=== PATIENT | female | born 1960 | race Caucasian/White ===

== ENCOUNTER 2025-02-18 14:35 | Inpatient (IN) | payer MEDICAID ==
[~2025-02-18] VITALS: Ht 167.6 cm; Wt 83.0 kg
[2025-02-18 14:37] VITALS: O2SAT 98
[2025-02-18] MEDS ORDERED: MORPHINE SULFATE 4 MG/ML INJ (FOR IV/IM USE) IV ONE (16:30)
[2025-02-18] MEDS: LORAZEPAM 2MG/ML UD SYRINGE IV SCH (18:26)
[2025-02-18] MEDS: MORPHINE SULFATE 4 MG/ML INJ (FOR IV/IM USE) IV SCH (18:26)
[2025-02-18 18:34] LABS: BASOPHILS % 1.2 % (0.0-2.0); EOSINOPHILS % 4.4 % (0.0-5.0); HEMATOCRIT. 40.7 % (36.0-48.0); HEMOGLOBIN. 13.3 g/dL (12.0-16.0); LYMPHOCYTES % 42.8 % (20.0-50.0); MEAN PLATELET VOLUME 9.4 fl (7.4-10.4); MONOCYTES % 8.5 % (2.0-8.0); NEUTROPHILS % 43.1 % (40.0-76.0); PLATELET 221 x1000/uL (130-400); RED BLOOD CELL COUNT 4.62 mill/uL (4.2-5.4); RED CELL DISTRIBUTION WIDTH 17.8 % (11.6-14.6)
[2025-02-18 18:48] LABS: CREATININE 1.1 mg/dL (0.6-1.0)
[2025-02-18 18:49] LABS: UREA NITROGEN BLOOD 14 mg/dL (9-23)
[2025-02-18 18:51] LABS: ASPARTATE AMINOTRANSFERASE 28 IU/L (<34); BILIRUBIN DIRECT 0.2 mg/dL (<=3.0); BILIRUBIN TOTAL 0.5 mg/dL (0.1-1.0); PROTEIN TOTAL 7.7 g/dL (6.0-8.3)
[2025-02-18 19:28] LABS: TROPONIN I HIGH SENSITIVITY 50 ng/L (3.0-34)
[2025-02-18] MEDS: ASPIRIN 325MG TABLET PO ONE (20:54)
[2025-02-18 21:55] LABS: TROPONIN I HIGH SENSITIVITY 42 ng/L (3.0-34)
[2025-02-19] VITALS (7 sets, daily range): BP systolic 101–163; BP diastolic 73–104; PULSE 65–89; RESP 16–20; TEMP 36.1–36.4736; O2SAT 91–98
[2025-02-19] MEDS ORDERED: NALOXONE HCL 0.4MG/ML VIAL IV PRN (05:45)
[2025-02-19] MEDS: ENOXAPARIN 40MG/0.4ML SYR SUBCUT SCH (09:00)
[2025-02-19] MEDS: METOPROLOL SUCCINATE 50MG ER TABLET PO SCH (09:00)
[2025-02-19] MEDS: ASPIRIN 81MG TABLET PO SCH (09:00)
[2025-02-19] MEDS: HYDROCODONE/ACETAMINOPHEN 5/325MG TABLET PO PRN (10:19)
[2025-02-19] MEDS: DOCUSATE SODIUM 250MG CAPSULE PO SCH (13:38)
[2025-02-19] MEDS: PANTOPRAZOLE 40MG DR TABLET PO SCH (13:39)
[2025-02-19] MEDS: TRAMADOL 50MG TABLET PO PRN (14:02)
[2025-02-19] MEDS: ENOXAPARIN 80MG/0.8ML SYR SUBCUT SCH (15:14)
[2025-02-19] MEDS ORDERED: CARV3.1242 PO (17:10)
[2025-02-19] MEDS ORDERED: MULT-1146 MT (17:10)
[2025-02-19] MEDS ORDERED: DIVA-18 PO (17:10)
[2025-02-19] MEDS ORDERED: ATOR40TA70 MT (17:10)
[2025-02-19] MEDS ORDERED: NITR0.4T49 SL (17:10)
[2025-02-19] MEDS ORDERED: ASPI-1497 PO (17:10)
[2025-02-19] MEDS ORDERED: RISP-28 PO (17:10)
[2025-02-19] MEDS: AMLODIPINE 10MG TABLET PO SCH (18:13)
[2025-02-19] MEDS ORDERED: RISP1TAB93 PO (20:04)
[2025-02-19] MEDS: ATORVASTATIN CALCIUM 40MG TABLET PO SCH (21:18)
[2025-02-19] MEDS: RISPERIDONE 1MG TABLET PO SCH (21:18)
[2025-02-19 22:09] LABS: INR 1.0
[2025-02-20] VITALS: BP 135/66; PULSE 68; RESP 18; TEMP 36.4; TEMP 36.5; O2SAT 94; O2SAT 95
[2025-02-20 04:00] VITALS: BP 118/67; PULSE 62; RESP 18; TEMP 36.4; O2SAT 96
[2025-02-20] MEDS: ENOXAPARIN 80MG/0.8ML SYR SUBCUT SCH (06:00)
[2025-02-20 08:00] VITALS: BP 145/84; PULSE 82; RESP 16; TEMP 36.4; O2SAT 94
[2025-02-20 16:00] VITALS: BP 121/88; PULSE 72; RESP 16; TEMP 36.2; O2SAT 97
[2025-02-20 20:00] VITALS: BP 132/70; PULSE 60; RESP 18; TEMP 36.3; O2SAT 96
[2025-02-21] VITALS: BP 144/88; PULSE 66; RESP 18; TEMP 36.3; O2SAT 98
[2025-02-21 04:00] VITALS: BP 132/74; PULSE 69; RESP 16; TEMP 36.6
[2025-02-21 20:00] VITALS: BP 127/96; PULSE 76; RESP 16; TEMP 36.2; O2SAT 96
[2025-02-22] VITALS: BP 126/78; PULSE 91; RESP 16; TEMP 37; O2SAT 96
[2025-02-22 04:00] VITALS: BP 109/84; PULSE 84; RESP 16; TEMP 36.1; O2SAT 97
[2025-02-22 08:00] VITALS: BP 103/65; PULSE 89; RESP 18; TEMP 36.7; O2SAT 97
[2025-02-22 12:00] VITALS: BP 126/78; PULSE 68; RESP 16; TEMP 36.9; O2SAT 96
[2025-02-22] MEDS: LORAZEPAM 1MG TABLET PO PRN (12:16)
[2025-02-22 16:00] VITALS: BP 117/79; PULSE 73; RESP 16; TEMP 36.4; O2SAT 97
[2025-02-22 20:00] VITALS: BP 132/85; PULSE 82; RESP 18; TEMP 36.3; O2SAT 95
[2025-02-23] VITALS: BP 132/85; PULSE 82; RESP 18; TEMP 36.3; O2SAT 95
[2025-02-23 04:00] VITALS: BP 100/78; PULSE 82; RESP 18; TEMP 36; O2SAT 95
[2025-02-23 08:00] VITALS: BP 124/78; PULSE 86; RESP 20; TEMP 36.5; O2SAT 95
[2025-02-23 11:27] LABS: BASOPHILS % 0.7 % (0.0-2.0); EOSINOPHILS % 0.4 % (0.0-5.0); HEMATOCRIT. 37.8 % (36.0-48.0); HEMOGLOBIN. 12.3 g/dL (12.0-16.0); LYMPHOCYTES % 30.7 % (20.0-50.0); MEAN PLATELET VOLUME 10.3 fl (7.4-10.4); MONOCYTES % 10.0 % (2.0-8.0); NEUTROPHILS % 58.2 % (40.0-76.0); PLATELET 165 x1000/uL (130-400); RED BLOOD CELL COUNT 4.25 mill/uL (4.2-5.4); RED CELL DISTRIBUTION WIDTH 17.0 % (11.6-14.6)
[2025-02-23 11:39] LABS: CREATININE 1.1 mg/dL (0.6-1.0); UREA NITROGEN BLOOD 19.0 mg/dL (9-23)
[2025-02-23 12:00] VITALS: BP 118/75; PULSE 70; RESP 20; TEMP 36.9; O2SAT 99
[2025-02-23 16:00] VITALS: BP 119/79; PULSE 78; RESP 22; TEMP 37; O2SAT 97
[2025-02-23 20:00] VITALS: BP 128/79; PULSE 84; RESP 17; TEMP 36.4; O2SAT 97
[2025-02-23] MEDS: POLYETHYLENE GLYCOL 3350 (17GM) 1 DOSE PACK PO PRN (20:27)
[2025-02-24] VITALS: BP 126/80; PULSE 73; RESP 16; TEMP 36.3; O2SAT 98
[2025-02-24 04:25] VITALS: BP 110/66; PULSE 60; RESP 14; TEMP 37.1; O2SAT 98
[2025-02-24] MEDS: FAMOTIDINE 20MG TABLET PO SCH (09:15)
[2025-02-24 11:27] LABS: BASOPHILS % 1.0 % (0.0-2.0); EOSINOPHILS % 3.9 % (0.0-5.0); HEMATOCRIT. 38.1 % (36.0-48.0); HEMOGLOBIN. 12.5 g/dL (12.0-16.0); LYMPHOCYTES % 28.0 % (20.0-50.0); MEAN PLATELET VOLUME 10.0 fl (7.4-10.4); MONOCYTES % 9.5 % (2.0-8.0); NEUTROPHILS % 57.6 % (40.0-76.0); PLATELET 165 x1000/uL (130-400); RED BLOOD CELL COUNT 4.34 mill/uL (4.2-5.4); RED CELL DISTRIBUTION WIDTH 17.2 % (11.6-14.6)
[2025-02-24 11:45] LABS: CREATININE 1.0 mg/dL (0.6-1.0); UREA NITROGEN BLOOD 19.0 mg/dL (9-23)
[2025-02-24 16:00] VITALS: BP 118/83; PULSE 61; RESP 17; TEMP 36.4; O2SAT 97
[2025-02-24 20:00] VITALS: BP 127/68; PULSE 70; RESP 19; TEMP 36.3; O2SAT 96
[2025-02-24] MEDS: SENNOSIDES/DOCUSATE SOD 8.6/50MG TABLET PO PRN (21:52)
[2025-02-25] VITALS: BP 100/68; PULSE 78; RESP 19; TEMP 36.7; O2SAT 96
[2025-02-25 04:00] VITALS: BP 102/71; PULSE 72; RESP 19; TEMP 36.4; O2SAT 96
[2025-02-25 08:00] VITALS: BP_SYST 103; BP_SYST 110; BP_DIAS 61; BP_DIAS 77; PULSE 75; RESP 14; RESP 16; TEMP 35.9; TEMP 36.1; O2SAT 100; O2SAT 95
[2025-02-25] MEDS: TRAMADOL 50MG TABLET PO PRN (11:23)
[2025-02-25 12:00] VITALS: BP 124/96; PULSE 82; RESP 16; TEMP 36.4; O2SAT 98
[2025-02-25 13:46] LABS: BASOPHILS % 0.8 % (0.0-2.0); EOSINOPHILS % 3.3 % (0.0-5.0); HEMATOCRIT. 38.5 % (36.0-48.0); HEMOGLOBIN. 12.5 g/dL (12.0-16.0); LYMPHOCYTES % 32.2 % (20.0-50.0); MEAN PLATELET VOLUME 10.0 fl (7.4-10.4); MONOCYTES % 9.5 % (2.0-8.0); NEUTROPHILS % 54.2 % (40.0-76.0); PLATELET 178 x1000/uL (130-400); RED BLOOD CELL COUNT 4.38 mill/uL (4.2-5.4); RED CELL DISTRIBUTION WIDTH 17.2 % (11.6-14.6)
[2025-02-25 13:58] LABS: CREATININE 0.9 mg/dL (0.6-1.0); UREA NITROGEN BLOOD 16 mg/dL (9-23)
[2025-02-25 16:00] VITALS: BP 119/91; PULSE 73; RESP 18; TEMP 36.3; O2SAT 97
[2025-02-25 20:00] VITALS: BP 117/79; PULSE 67; RESP 17; TEMP 36.1
[2025-02-26] VITALS: BP 100/65; PULSE 60; RESP 60; TEMP 36; O2SAT 93
[2025-02-26 04:00] VITALS: BP 124/76; PULSE 63; RESP 16; TEMP 36.2; O2SAT 97
[2025-02-26 08:10] VITALS: BP 98/48; PULSE 58; RESP 16; TEMP 36.1; O2SAT 98
[2025-02-26] MEDS: LOSARTAN 25 MG TABLET PO SCH (08:11)
[2025-02-26 11:50] LABS: BASOPHILS % 0.9 % (0.0-2.0); EOSINOPHILS % 4.1 % (0.0-5.0); HEMATOCRIT. 38.7 % (36.0-48.0); HEMOGLOBIN. 12.8 g/dL (12.0-16.0); LYMPHOCYTES % 38.4 % (20.0-50.0); MEAN PLATELET VOLUME 10.5 fl (7.4-10.4); MONOCYTES % 9.5 % (2.0-8.0); NEUTROPHILS % 47.1 % (40.0-76.0); PLATELET 174 x1000/uL (130-400); RED BLOOD CELL COUNT 4.42 mill/uL (4.2-5.4); RED CELL DISTRIBUTION WIDTH 17.4 % (11.6-14.6)
[2025-02-26 12:06] LABS: CREATININE 0.9 mg/dL (0.6-1.0); UREA NITROGEN BLOOD 13 mg/dL (9-23)
[2025-02-26] MEDS: NITROGLYCERIN SPRAY/4.9GM CAN TL ONE (14:10)
[2025-02-26] MEDS ORDERED: IOHEXOL-350 100 ML BOTTLE ONE (14:21)
[2025-02-26 15:17] VITALS: BP 124/71; PULSE 60; RESP 16; TEMP 36.7; O2SAT 98
[2025-02-26 20:00] VITALS: BP 109/74; PULSE 78; RESP 16; TEMP 36.4; O2SAT 99
[2025-02-27] VITALS: BP 107/60; PULSE 76; RESP 18; TEMP 36.6; O2SAT 98
[2025-02-27 04:00] VITALS: BP 90/60; PULSE 55; RESP 16; TEMP 36.5; O2SAT 95
[2025-02-27 08:00] VITALS: BP 132/86; PULSE 66; RESP 18; TEMP 36.3; O2SAT 97
[2025-02-27 12:00] VITALS: BP 129/80; PULSE 68; RESP 19; TEMP 36.5; O2SAT 97
[2025-02-27 16:00] VITALS: BP 88/58; PULSE 67; RESP 18; TEMP 36.7; O2SAT 98
[2025-02-27 20:00] VITALS: BP 110/74; PULSE 61; RESP 20; TEMP 36.5; O2SAT 95
[2025-02-27] MEDS: LORAZEPAM 1MG TABLET PO PRN (20:16)
[2025-02-27] MEDS: RISPERIDONE 0.5MG TABLET PO SCH (20:18)
[2025-02-28] VITALS: BP 80/52; PULSE 64; RESP 20; TEMP 36; O2SAT 96
[2025-02-28 04:00] VITALS: BP 100/65; PULSE 60; RESP 20; TEMP 36.7; O2SAT 98
[2025-02-28 08:00] VITALS: BP 127/89; PULSE 69; RESP 18; TEMP 36.4; O2SAT 96
[2025-02-28 12:00] VITALS: BP 107/79; PULSE 76; RESP 18; TEMP 35.7; O2SAT 97
[2025-02-28 16:00] VITALS: BP 116/77; PULSE 74; RESP 17; TEMP 36.3; O2SAT 98
[2025-02-28 20:00] VITALS: BP 109/78; PULSE 86; RESP 16; TEMP 36.6; O2SAT 95
[2025-02-28] MEDS ORDERED: RISPERIDONE 0.5MG TABLET PO SCH (21:00)
[2025-03-01] VITALS: BP 95/57; PULSE 83; RESP 16; TEMP 36.6; O2SAT 95
[2025-03-01 04:00] VITALS: BP 81/53; PULSE 60; RESP 17; TEMP 36.1; O2SAT 97
[2025-03-01 08:00] VITALS: BP 94/63; PULSE 60; RESP 17; TEMP 36.4; O2SAT 97
[2025-03-01] MEDS: SODIUM CHLORIDE 0.9% (SEPSIS BOLUS) IV ONE (09:42)
[2025-03-01] MEDS: MIDODRINE HCL 5MG TABLET PO PRN (09:42)
[2025-03-01 12:00] VITALS: BP 108/56; PULSE 60; RESP 18; TEMP 36.4; O2SAT 100
[2025-03-01 12:40] LABS: CLARITY URINE CLEAR (CLEAR); COLOR URINE DARK YELLOW (YELLOW); GLUCOSE URINE NEGATIVE (NEGATIVE); KETONES URINE TRACE (NEGATIVE); LEUKOCYTE ESTERASE URINE NEGATIVE (NEGATIVE); NITRITE URINE NEGATIVE (NEGATIVE); OCCULT BLOOD URINE NEGATIVE (NEGATIVE); PH URINE 5.5 (4.5-8.0); PROTEIN URINE NEGATIVE (NEGATIVE); SPECIFIC GRAVITY URINE 1.029 (1.005-1.030); UROBILINOGEN URINE 0.2 E.U./dL (0.2-1.0)
[2025-03-01 16:00] VITALS: BP 125/75; PULSE 60; RESP 17; TEMP 36.4; O2SAT 98
[2025-03-01 18:41] LABS: BASOPHILS % 0.8 % (0.0-2.0); CREATININE 0.9 mg/dL (0.6-1.0); EOSINOPHILS % 2.1 % (0.0-5.0); HEMATOCRIT. 35.9 % (36.0-48.0); HEMOGLOBIN. 11.7 g/dL (12.0-16.0); LYMPHOCYTES % 36.2 % (20.0-50.0); MEAN PLATELET VOLUME 10.9 fl (7.4-10.4); MONOCYTES % 9.4 % (2.0-8.0); NEUTROPHILS % 51.5 % (40.0-76.0); PLATELET 204 x1000/uL (130-400); RED BLOOD CELL COUNT 4.05 mill/uL (4.2-5.4); RED CELL DISTRIBUTION WIDTH 16.8 % (11.6-14.6)
[2025-03-01 18:42] LABS: UREA NITROGEN BLOOD 12 mg/dL (9-23)
[2025-03-01 18:43] LABS: ASPARTATE AMINOTRANSFERASE 24 IU/L (<34)
[2025-03-01 18:44] LABS: BILIRUBIN TOTAL 0.4 mg/dL (0.1-1.0); PROTEIN TOTAL 6.5 g/dL (6.0-8.3)
[2025-03-01 20:00] VITALS: BP 101/57; PULSE 84; RESP 19; TEMP 36.4; O2SAT 96
[2025-03-02] VITALS: BP 92/57; PULSE 73; RESP 17; TEMP 36.2; O2SAT 97
[2025-03-02 04:00] VITALS: BP 120/81; PULSE 78; RESP 18; TEMP 36.3; O2SAT 98
[2025-03-02 08:00] VITALS: BP 124/97; PULSE 74; RESP 19; TEMP 36.2; O2SAT 98
[2025-03-02 12:00] VITALS: BP 120/75; PULSE 82; RESP 18; TEMP 36.5; O2SAT 95
[2025-03-02] MEDS ORDERED: BISACODYL 10MG SUPP PR PRN (12:15)
[2025-03-02] MEDS: ACETAMINOPHEN 325MG TABLET PO PRN (13:31)
[2025-03-02 16:00] VITALS: BP 124/83; PULSE 93; RESP 20; TEMP 36.4; O2SAT 96
[2025-03-02 20:00] VITALS: BP 129/78; PULSE 93; RESP 16; TEMP 36.6; O2SAT 98
[2025-03-02 21:59] LABS: BASOPHILS % 1.1 % (0.0-2.0); EOSINOPHILS % 3.8 % (0.0-5.0); HEMATOCRIT. 34.6 % (36.0-48.0); HEMOGLOBIN. 11.3 g/dL (12.0-16.0); LYMPHOCYTES % 42.6 % (20.0-50.0); MEAN PLATELET VOLUME 10.2 fl (7.4-10.4); MONOCYTES % 10.9 % (2.0-8.0); NEUTROPHILS % 41.6 % (40.0-76.0); PLATELET 203 x1000/uL (130-400); RED BLOOD CELL COUNT 3.90 mill/uL (4.2-5.4); RED CELL DISTRIBUTION WIDTH 16.5 % (11.6-14.6)
[2025-03-02 22:18] LABS: CREATININE 0.9 mg/dL (0.6-1.0); UREA NITROGEN BLOOD 13 mg/dL (9-23)
[2025-03-03] VITALS: BP 139/84; PULSE 88; RESP 18; TEMP 36.5; O2SAT 98
[2025-03-03 04:00] VITALS: BP 116/90; PULSE 80; RESP 16; TEMP 37.1; O2SAT 100
[2025-03-03 06:54] LABS: BASOPHILS % 0.9 % (0.0-2.0); EOSINOPHILS % 5.4 % (0.0-5.0); HEMATOCRIT. 34.9 % (36.0-48.0); HEMOGLOBIN. 11.5 g/dL (12.0-16.0); LYMPHOCYTES % 46.4 % (20.0-50.0); MEAN PLATELET VOLUME 10.8 fl (7.4-10.4); MONOCYTES % 9.5 % (2.0-8.0); NEUTROPHILS % 37.8 % (40.0-76.0); PLATELET 198 x1000/uL (130-400); RED BLOOD CELL COUNT 3.99 mill/uL (4.2-5.4); RED CELL DISTRIBUTION WIDTH 16.7 % (11.6-14.6)
[2025-03-03 07:19] LABS: CREATININE 0.9 mg/dL (0.6-1.0); UREA NITROGEN BLOOD 11 mg/dL (9-23)
[2025-03-03 08:00] VITALS: BP 120/67; PULSE 56; RESP 20; TEMP 36.2; O2SAT 100
[2025-03-03 12:00] VITALS: BP 100/71; PULSE 98; RESP 16; TEMP 36.7; O2SAT 96
[2025-03-03 16:00] VITALS: BP 110/85; PULSE 105; RESP 18; TEMP 36.4; O2SAT 97
[2025-03-03 20:00] VITALS: BP 134/84; PULSE 106; RESP 18; TEMP 36.9; O2SAT 98
[2025-03-04] VITALS: BP 136/97; PULSE 90; RESP 16; TEMP 36.6; O2SAT 97
[2025-03-04 04:00] VITALS: BP 130/88; PULSE 95; RESP 18; TEMP 36.7; O2SAT 98
[2025-03-04 08:00] VITALS: BP 112/80; PULSE 101; RESP 18; TEMP 36.5; O2SAT 97
[2025-03-04 12:00] VITALS: BP 110/76; PULSE 102; RESP 19; TEMP 36.6; O2SAT 97
[2025-03-04 14:20] LABS: BASOPHILS % 1.0 % (0.0-2.0); EOSINOPHILS % 1.5 % (0.0-5.0); HEMATOCRIT. 33.0 % (36.0-48.0); HEMOGLOBIN. 10.9 g/dL (12.0-16.0); LYMPHOCYTES % 32.4 % (20.0-50.0); MEAN PLATELET VOLUME 10.8 fl (7.4-10.4); MONOCYTES % 9.8 % (2.0-8.0); NEUTROPHILS % 55.3 % (40.0-76.0); PLATELET 213 x1000/uL (130-400); RED BLOOD CELL COUNT 3.78 mill/uL (4.2-5.4); RED CELL DISTRIBUTION WIDTH 16.5 % (11.6-14.6)
[2025-03-04 14:36] LABS: CREATININE 1.0 mg/dL (0.6-1.0)
[2025-03-04 14:37] LABS: UREA NITROGEN BLOOD 11.0 mg/dL (9-23)
[2025-03-04 16:00] VITALS: BP 112/75; PULSE 100; RESP 19; TEMP 36.5; O2SAT 97
[2025-03-04 20:00] VITALS: BP 119/80; PULSE 114; RESP 19; TEMP 36.6; O2SAT 96
[2025-03-05 04:00] VITALS: BP 105/69; PULSE 69; RESP 19; TEMP 36.3; O2SAT 98
[2025-03-05 08:00] VITALS: BP 125/85; PULSE 85; RESP 17; TEMP 36.3; O2SAT 98
[2025-03-05 12:00] VITALS: BP 128/74; PULSE 57; RESP 17; TEMP 36.4; O2SAT 98
[2025-03-05 16:00] VITALS: BP 124/85; PULSE 97; RESP 17; TEMP 36.2; O2SAT 100
[2025-03-05 20:00] VITALS: BP 127/88; PULSE 98; RESP 17; TEMP 36.4; O2SAT 99
[2025-03-06 02:00] VITALS: BP 127/93; PULSE 94; RESP 17; TEMP 36.6; O2SAT 98
[2025-03-06 04:00] VITALS: BP 121/84; PULSE 78; RESP 18; TEMP 36.7; O2SAT 96
[2025-03-06 08:00] VITALS: BP 136/96; PULSE 80; RESP 16; TEMP 36.6; O2SAT 97
[2025-03-06 12:00] VITALS: BP 121/81; PULSE 81; RESP 20; TEMP 36.3; O2SAT 98
[2025-03-06] MEDS: LORAZEPAM 0.5MG TABLET PO PRN (12:45)
[2025-03-06 16:00] VITALS: BP 130/69; PULSE 100; RESP 18; TEMP 36.2; O2SAT 99
[2025-03-06 20:00] VITALS: BP 113/71; PULSE 83; RESP 18; TEMP 36.5; O2SAT 97
[2025-03-06] MEDS: RISPERIDONE 1MG TABLET PO SCH (20:47)
[2025-03-06] MEDS: MELATONIN 3MG TABLET PO SCH (20:47)
[2025-03-07] VITALS: BP 112/72; PULSE 80; RESP 18; TEMP 36.3; O2SAT 96
[2025-03-07 04:00] VITALS: BP 97/64; PULSE 67; RESP 19; TEMP 36; O2SAT 97
[2025-03-07 08:00] VITALS: BP 122/76; PULSE 79; RESP 19; TEMP 36.5; O2SAT 98
[2025-03-07 12:00] VITALS: BP 113/81; PULSE 58; RESP 20; TEMP 36.3; O2SAT 100
[2025-03-07 20:00] VITALS: BP 136/96; PULSE 89; RESP 18; TEMP 36.7; O2SAT 97
[2025-03-07] MEDS: DIVALPROEX SODIUM 250MG DR TABLET PO SCH (21:13)
[2025-03-08] VITALS: BP 112/65; PULSE 75; RESP 18; TEMP 36.3; O2SAT 95
[2025-03-08 04:00] VITALS: BP 117/75; PULSE 67; RESP 19; TEMP 36.3; O2SAT 99
[2025-03-08 08:00] VITALS: BP 137/59; PULSE 62; RESP 18; TEMP 36.3; O2SAT 97
[2025-03-08 12:00] VITALS: BP 124/78; PULSE 75; RESP 20; TEMP 36.6; O2SAT 98
[2025-03-08 16:00] VITALS: BP 102/70; PULSE 104; RESP 20; TEMP 36.4; O2SAT 98
[2025-03-08 20:00] VITALS: BP 121/77; PULSE 96; RESP 22; TEMP 36.3; O2SAT 98
[2025-03-09] VITALS: BP 114/78; PULSE 76; RESP 17; TEMP 36.3; O2SAT 98
[2025-03-09 04:00] VITALS: BP 130/68; PULSE 80; RESP 18; TEMP 36.4; O2SAT 99
[2025-03-09 08:00] VITALS: BP 101/79; PULSE 65; RESP 18; TEMP 36.7; O2SAT 99
[2025-03-09 12:00] VITALS: BP 107/79; PULSE 78; RESP 18; TEMP 36.7; O2SAT 99
[2025-03-09 16:00] VITALS: BP 114/58; PULSE 80; RESP 18; TEMP 36.1; O2SAT 99
[2025-03-09 20:00] VITALS: BP 117/88; PULSE 103; RESP 19; TEMP 36.6; O2SAT 97
[2025-03-09] MEDS: RISPERIDONE 1MG TABLET PO SCH (20:23)
[2025-03-10] VITALS: BP 102/55; PULSE 90; RESP 20; TEMP 36.6; O2SAT 98
[2025-03-10 04:00] VITALS: BP 108/60; PULSE 88; RESP 19; TEMP 37.1; O2SAT 99
[2025-03-10 08:00] VITALS: BP 122/89; PULSE 72; RESP 20; TEMP 36.9; O2SAT 100
[2025-03-10 12:00] VITALS: BP 131/72; PULSE 90; RESP 20; TEMP 36.5; O2SAT 99
[2025-03-10 16:00] VITALS: BP 141/96; PULSE 100; RESP 18; TEMP 36.6; O2SAT 96
[2025-03-10 17:16] LABS: CREATININE 0.9 mg/dL (0.6-1.0); UREA NITROGEN BLOOD 8 mg/dL (9-23)
[2025-03-10 20:00] VITALS: BP 131/91; PULSE 99; RESP 20; TEMP 36.6; O2SAT 100
[2025-03-11] VITALS: BP 110/63; PULSE 87; RESP 17; TEMP 36.7; O2SAT 98
[2025-03-11 04:00] VITALS: BP 104/56; PULSE 83; RESP 16; TEMP 36.8; O2SAT 99
[2025-03-11 08:00] VITALS: BP 98/58; PULSE 98; RESP 19; TEMP 36.7; O2SAT 98
[2025-03-11 12:00] VITALS: BP 117/84; PULSE 97; RESP 19; TEMP 36.5; O2SAT 97
[2025-03-11 16:00] VITALS: BP 106/80; PULSE 97; RESP 20; TEMP 36.9; O2SAT 97
[2025-03-12 00:35] VITALS: BP 137/91; PULSE 73; RESP 18; TEMP 36.6; O2SAT 97
[2025-03-12 04:55] VITALS: BP 112/74; PULSE 94; RESP 17; TEMP 36.6; O2SAT 97
[2025-03-12 08:00] VITALS: BP 134/69; PULSE 53; RESP 16; TEMP 36.2; O2SAT 99
[2025-03-12 12:00] VITALS: BP 118/81; PULSE 83; RESP 18; TEMP 36.3; O2SAT 98
[2025-03-12 16:00] VITALS: BP 116/71; PULSE 92; RESP 20; TEMP 36.7; O2SAT 96
[2025-03-12 20:00] VITALS: BP 125/86; PULSE 96; RESP 17; TEMP 36.7; O2SAT 95
[2025-03-12] MEDS: GABAPENTIN 300MG CAPSULE PO PRN (20:20)
[2025-03-13 08:00] VITALS: BP 115/55; PULSE 73; RESP 16; TEMP 36.6; O2SAT 95
[2025-03-13 12:00] VITALS: BP 116/73; PULSE 68; RESP 18; TEMP 36.2; O2SAT 97
[2025-03-13 16:00] VITALS: BP 125/52; PULSE 84; RESP 20; TEMP 36.7; O2SAT 97
[2025-03-13 20:00] VITALS: BP 123/80; PULSE 97; RESP 15; TEMP 36.9; O2SAT 98
[2025-03-14] VITALS: BP 107/74; PULSE 105; RESP 16; TEMP 36.7; O2SAT 98
[2025-03-14 04:00] VITALS: BP 104/76; PULSE 97; RESP 18; TEMP 36.7; O2SAT 98
[2025-03-14 08:00] VITALS: BP 111/68; PULSE 62; RESP 17; TEMP 36.7; O2SAT 97
[2025-03-14 12:00] VITALS: BP 126/83; PULSE 70; RESP 17; TEMP 35.6; O2SAT 100
[2025-03-14 16:00] VITALS: BP 121/89; PULSE 71; RESP 17; TEMP 36.8; O2SAT 99
[2025-03-14 20:00] VITALS: BP 113/65; PULSE 82; RESP 19; TEMP 36.7; O2SAT 96
[2025-03-15] VITALS: BP 105/78; PULSE 81; RESP 18; TEMP 36.4; O2SAT 99
[2025-03-15 04:00] VITALS: BP 120/87; PULSE 75; RESP 19; TEMP 36.3; O2SAT 97
[2025-03-15 08:00] VITALS: BP 94/70; PULSE 60; RESP 18; TEMP 36.2; O2SAT 95
[2025-03-15] MEDS: DIPHENHYDRAMINE 50MG CAPSULE PO PRN (09:21)
[2025-03-15 12:00] VITALS: BP 128/88; PULSE 83; RESP 19; TEMP 35.8; O2SAT 95
[2025-03-15 20:00] VITALS: BP 126/77; PULSE 84; RESP 18; TEMP 36.9; O2SAT 97
[2025-03-16] VITALS: RESP 18
[2025-03-16 04:00] VITALS: RESP 18
[2025-03-16 08:00] VITALS: BP 118/67; PULSE 62; RESP 18; TEMP 36.4; O2SAT 97
[2025-03-16 12:00] VITALS: BP 122/75; PULSE 72; RESP 18; TEMP 36.7; O2SAT 97
[2025-03-16 16:00] VITALS: BP 106/78; PULSE 82; RESP 18; TEMP 36.7; O2SAT 97
[2025-03-16 20:00] VITALS: BP 136/63; PULSE 89; RESP 18; TEMP 36.7; O2SAT 98
[2025-03-17] VITALS: RESP 18
[2025-03-17 04:00] VITALS: BP 111/78; RESP 18; TEMP 36.5; O2SAT 99
[2025-03-17 08:00] VITALS: BP 134/78; PULSE 70; RESP 18; TEMP 36.4; O2SAT 98
[2025-03-17 12:00] VITALS: BP 105/76; PULSE 82; RESP 17; TEMP 36.3; O2SAT 97
[2025-03-17 16:00] VITALS: BP 119/62; PULSE 91; RESP 20; TEMP 36.5; O2SAT 99
[2025-03-17 20:00] VITALS: BP 103/59; PULSE 75; RESP 19; TEMP 36.2; O2SAT 94
[2025-03-18] VITALS: BP 107/72; PULSE 86; RESP 19; TEMP 36.3; O2SAT 96
[2025-03-18 04:00] VITALS: BP 108/76; PULSE 62; RESP 18; TEMP 36.2; O2SAT 97
[2025-03-18 08:00] VITALS: BP 127/82; PULSE 89; RESP 18; TEMP 37.2; O2SAT 98
[2025-03-18 12:00] VITALS: BP 118/75; PULSE 88; RESP 18; TEMP 36.5; O2SAT 96
[2025-03-18 16:00] VITALS: BP 112/70; PULSE 94; RESP 17; TEMP 36.8; O2SAT 96
[2025-03-18 20:00] VITALS: BP 127/83; PULSE 98; RESP 18; TEMP 36.4; O2SAT 97
[2025-03-19] VITALS: BP 142/66; PULSE 86; RESP 20; TEMP 36.5; O2SAT 97
[2025-03-19 04:00] VITALS: BP 136/62; PULSE 82; RESP 18; TEMP 36.4; O2SAT 98
[2025-03-19 08:00] VITALS: BP 101/83; PULSE 81; RESP 17; TEMP 36.5; O2SAT 96
[2025-03-19 12:00] VITALS: BP 103/84; PULSE 80; RESP 17; TEMP 36.2; O2SAT 100
[2025-03-19 16:00] VITALS: BP 111/79; PULSE 100; RESP 18; TEMP 36.9; O2SAT 100
[2025-03-19 20:00] VITALS: BP 140/99; PULSE 91; RESP 18; TEMP 36.6; O2SAT 98
[2025-03-20] VITALS: BP 137/84; PULSE 71; RESP 18; TEMP 36.7; O2SAT 96
[2025-03-20 04:00] VITALS: BP 139/86; PULSE 74; RESP 16; TEMP 36.3; O2SAT 100
[2025-03-20 08:00] VITALS: BP 142/115; PULSE 73; RESP 18; TEMP 36.3; O2SAT 98
[2025-03-20 12:00] VITALS: BP 135/94; PULSE 64; RESP 19; TEMP 36.2; O2SAT 97
[2025-03-20 20:00] VITALS: BP 130/99; PULSE 77; RESP 18; TEMP 36.7; O2SAT 100
[2025-03-21 00:30] VITALS: BP 123/75; PULSE 70; RESP 17; TEMP 36.5; O2SAT 100
[2025-03-21 04:28] VITALS: BP 145/64; PULSE 57; RESP 18; TEMP 36.3; O2SAT 95
[2025-03-21 08:00] VITALS: BP 139/70; PULSE 60; RESP 16; TEMP 36.2; O2SAT 100
[2025-03-21 12:00] VITALS: BP 121/85; PULSE 81; RESP 16; TEMP 36.3; O2SAT 97
[2025-03-21 16:00] VITALS: BP 135/73; PULSE 62; RESP 16; TEMP 36.2; O2SAT 99
[2025-03-21 20:00] VITALS: BP 138/92; PULSE 96; RESP 19; TEMP 36.4; O2SAT 96
[2025-03-22] VITALS: BP 123/62; PULSE 72; RESP 19; TEMP 36.4; O2SAT 98
[2025-03-22 04:00] VITALS: BP 107/67; PULSE 66; RESP 19; TEMP 36.6; O2SAT 98
[2025-03-22 08:00] VITALS: BP 132/81; PULSE 75; RESP 18; TEMP 36.2; O2SAT 97
[2025-03-22 12:00] VITALS: BP 118/77; PULSE 82; RESP 18; TEMP 35.3; O2SAT 96
[2025-03-22 16:00] VITALS: BP 133/88; PULSE 98; RESP 20; TEMP 36.4; O2SAT 96
[2025-03-22 20:00] VITALS: RESP 18; TEMP 36.2
[2025-03-23] VITALS: BP 118/82; PULSE 106; RESP 18; TEMP 36.7; O2SAT 94
[2025-03-23 04:00] VITALS: BP 142/86; PULSE 62; RESP 18; TEMP 36.5; O2SAT 96
[2025-03-23 08:00] VITALS: BP 120/78; PULSE 70; RESP 19; TEMP 36.5; O2SAT 96
[2025-03-23 12:00] VITALS: BP 119/76; PULSE 83; RESP 19; TEMP 36.4; O2SAT 98
[2025-03-23 16:00] VITALS: BP 134/81; PULSE 84; RESP 19; TEMP 36.6; O2SAT 95
[2025-03-23 20:00] VITALS: BP 136/64; PULSE 95; RESP 17; TEMP 36.3; O2SAT 95
[2025-03-24] VITALS: BP 120/64; PULSE 74; RESP 18; TEMP 36.2; O2SAT 96
[2025-03-24 04:00] VITALS: BP 95/60; PULSE 67; RESP 19; TEMP 36.3; O2SAT 97
[2025-03-24 08:00] VITALS: BP 113/73; PULSE 78; RESP 19; TEMP 36.3; O2SAT 100
[2025-03-24 12:00] VITALS: BP 106/73; PULSE 85; RESP 18; TEMP 35.8; O2SAT 98
[2025-03-24 16:00] VITALS: BP 115/82; PULSE 95; RESP 18; TEMP 36.4; O2SAT 98
[2025-03-24] MEDS ORDERED: LORAZEPAM 2MG/ML UD SYRINGE IV PRN (17:15)
[2025-03-24] MEDS: LORAZEPAM 1MG TABLET PO PRN (18:50)
[2025-03-24 20:00] VITALS: BP 111/70; PULSE 86; RESP 19; TEMP 36.4; O2SAT 98
[2025-03-25] VITALS: BP 101/62; PULSE 80; RESP 19; TEMP 36.3; O2SAT 97
[2025-03-25 04:00] VITALS: BP 103/79; PULSE 72; RESP 19; TEMP 36.3; O2SAT 98
[2025-03-25 08:00] VITALS: BP 111/71; PULSE 71; RESP 18; TEMP 36.3; O2SAT 100
[2025-03-25 12:00] VITALS: BP 104/68; PULSE 64; RESP 16; TEMP 36.2; O2SAT 96
[2025-03-25 16:00] VITALS: BP 97/69; PULSE 81; RESP 15; TEMP 36.7; O2SAT 96
[2025-03-25 20:00] VITALS: BP 111/68; PULSE 82; RESP 19; TEMP 36.4; O2SAT 95
[2025-03-26] VITALS: BP 103/60; PULSE 102; RESP 20; TEMP 36.4; O2SAT 96
[2025-03-26 04:00] VITALS: BP 97/63; PULSE 70; RESP 18; TEMP 36.4; O2SAT 97
[2025-03-26 08:00] VITALS: BP 95/59; PULSE 70; RESP 18; TEMP 36.6; O2SAT 98
[2025-03-26 12:00] VITALS: BP 113/63; PULSE 63; RESP 18; TEMP 36.3; O2SAT 94
[2025-03-26 16:00] VITALS: BP 112/82; PULSE 80; RESP 15; TEMP 36.4; O2SAT 98
[2025-03-26 20:00] VITALS: BP 103/77; PULSE 70; RESP 16; TEMP 36.7; O2SAT 95
[2025-03-27] VITALS: BP 97/62; PULSE 81; RESP 18; TEMP 36.2; O2SAT 99
[2025-03-27 04:00] VITALS: BP 106/72; PULSE 80; RESP 17; TEMP 36.3; O2SAT 98
[2025-03-27 08:00] VITALS: BP 121/71; PULSE 89; RESP 16; TEMP 36.4; O2SAT 97
[2025-03-27] MEDS: GABAPENTIN 300MG CAPSULE PO SCH (09:11)
[2025-03-27 12:00] VITALS: BP 118/92; PULSE 102; RESP 15; TEMP 36.6; O2SAT 98
[2025-03-27 16:00] VITALS: BP 97/75; PULSE 85; RESP 16; TEMP 36.5; O2SAT 95
[2025-03-27] MEDS: DIPHENHYDRAMINE 25MG CAPSULE PO PRN (17:04)
[2025-03-27 20:00] VITALS: BP 115/77; PULSE 85; RESP 24; TEMP 36.8; O2SAT 98
[2025-03-27] MEDS: ENOXAPARIN 30MG/0.3ML SYR SUBCUT SCH (20:31)
[2025-03-28] VITALS: BP 118/74; PULSE 88; RESP 18; TEMP 36.6; O2SAT 97
[2025-03-28 04:00] VITALS: BP 114/69; PULSE 81; RESP 19; TEMP 36.7; O2SAT 97
[2025-03-28 08:00] VITALS: BP 112/73; PULSE 66; RESP 19; TEMP 36.4; O2SAT 96
[2025-03-28 12:00] VITALS: BP 115/85; PULSE 79; RESP 18; TEMP 35.6; O2SAT 97
[2025-03-28 16:00] VITALS: BP 102/52; PULSE 96; RESP 19; TEMP 36.6; O2SAT 95
[2025-03-29 08:00] VITALS: BP 110/64; PULSE 83; RESP 17; TEMP 36.4; O2SAT 94
[2025-03-29 12:00] VITALS: BP 112/67; PULSE 83; RESP 17; TEMP 36.4; O2SAT 94
[2025-03-29 16:00] VITALS: BP 120/63; PULSE 88; RESP 17; TEMP 36.4; O2SAT 98
[2025-03-29 20:00] VITALS: BP 119/68; PULSE 72; RESP 18; TEMP 36.1; O2SAT 100
[2025-03-30] VITALS: BP 105/70; PULSE 79; RESP 18; TEMP 36.2; O2SAT 100
[2025-03-30] MEDS ORDERED: NALOXONE HCL 0.4MG/ML VIAL IV PRN (00:45)
[2025-03-30] MEDS: DOCUSATE SODIUM 250MG CAPSULE PO SCH (00:56)
[2025-03-30] MEDS: HYDROCODONE/ACETAMINOPHEN 5/325MG TABLET PO PRN (00:57)
[2025-03-30 04:00] VITALS: BP 110/72; PULSE 81; RESP 18; TEMP 35.9; O2SAT 95
[2025-03-30 08:00] VITALS: BP 114/78; PULSE 73; RESP 17; TEMP 36.5; O2SAT 95
[2025-03-30 16:00] VITALS: BP 117/70; PULSE 70; RESP 16; TEMP 36.3; O2SAT 96
[2025-03-30 20:00] VITALS: BP 126/81; PULSE 86; RESP 19; TEMP 37.1; O2SAT 96
[2025-03-31] VITALS: BP 103/74; PULSE 80; RESP 19; TEMP 36.9; O2SAT 98
[2025-03-31 04:00] VITALS: BP 113/74; PULSE 74; RESP 20; TEMP 36.1; O2SAT 98
[2025-03-31 12:00] VITALS: BP 99/72; PULSE 79; RESP 18; TEMP 36.5; O2SAT 96
[2025-03-31 16:00] VITALS: BP 110/58; PULSE 65; RESP 19; TEMP 36.5; O2SAT 100
[2025-03-31 20:00] VITALS: BP 133/96; PULSE 84; RESP 18; TEMP 36.3; O2SAT 99
[2025-04-01] VITALS: BP 128/82; PULSE 74; RESP 18; TEMP 36.3; O2SAT 99
[2025-04-01 04:00] VITALS: BP 122/86; PULSE 68; RESP 18; TEMP 36.1; O2SAT 99
[2025-04-01 16:00] VITALS: BP 99/71; PULSE 94; RESP 19; TEMP 36.7; O2SAT 97
[2025-04-01 20:00] VITALS: BP 114/64; PULSE 89; RESP 18; TEMP 36.3; O2SAT 98
[2025-04-02] VITALS: BP 104/58; PULSE 77; RESP 18; TEMP 36.6; O2SAT 98
[2025-04-02 04:00] VITALS: BP 103/53; PULSE 79; RESP 18; TEMP 36.5; O2SAT 99
[2025-04-02 08:00] VITALS: BP 124/55; PULSE 80; RESP 17; TEMP 35.5; O2SAT 98
[2025-04-02 12:00] VITALS: BP 91/53; PULSE 84; RESP 18; RESP 19; TEMP 36.4; O2SAT 95
[2025-04-02 16:00] VITALS: BP 99/62; PULSE 84; TEMP 36.3; O2SAT 95
[2025-04-02 20:35] VITALS: BP 107/63; PULSE 105; RESP 18; TEMP 36.6; O2SAT 97
[2025-04-03] VITALS: BP_SYST 106; BP_SYST 108; BP_DIAS 68; PULSE 83; RESP 18; TEMP 36.5; O2SAT 97
[2025-04-03 04:00] VITALS: BP 97/64; PULSE 68; RESP 18; TEMP 35.9; O2SAT 100
[2025-04-03 08:43] VITALS: BP 122/62; PULSE 63; RESP 17; TEMP 36.3; O2SAT 96
[2025-04-03 12:00] VITALS: BP 121/76; PULSE 81; RESP 18; TEMP 36.4; O2SAT 98
[2025-04-03] MEDS ORDERED: LACTULOSE 20G/30ML UDC PO SCH (12:00)
[2025-04-03] MEDS: LACTULOSE 20G/30ML UDC PO SCH (14:47)
[2025-04-03 16:00] VITALS: BP 109/70; PULSE 67; RESP 17; TEMP 36.3; O2SAT 97
[2025-04-04] MEDS: LORAZEPAM 1MG TABLET PO PRN (02:36)
[2025-04-04 04:00] VITALS: BP 117/69; PULSE 78; RESP 18; TEMP 36.3; O2SAT 97
[2025-04-04 08:00] VITALS: BP 121/65; PULSE 75; RESP 18; TEMP 36.4; O2SAT 95
[2025-04-04] MEDS: HYDROCODONE/ACETAMINOPHEN 5/325MG TABLET PO PRN (08:56)
[2025-04-04 12:00] VITALS: BP 127/65; PULSE 94; RESP 19; TEMP 36.4; O2SAT 97
[2025-04-04 16:00] VITALS: BP 114/80; PULSE 79; RESP 19; TEMP 36.4; O2SAT 97
[2025-04-04 20:00] VITALS: BP_SYST 100; BP_DIAS 70; BP_DIAS 71; PULSE 80; PULSE 87; RESP 17; RESP 18; TEMP 36.2; O2SAT 97; O2SAT 98
[2025-04-05] VITALS: BP 127/84; PULSE 76; RESP 18; TEMP 36.3; O2SAT 98
[2025-04-05 04:00] VITALS: BP 123/82; PULSE 69; RESP 18; TEMP 36.2; O2SAT 97
[2025-04-05 08:00] VITALS: BP 102/65; PULSE 60; RESP 16; TEMP 36.3; O2SAT 97
[2025-04-05 12:00] VITALS: BP 139/79; PULSE 68; RESP 18; TEMP 36.4; O2SAT 96
[2025-04-05 16:00] VITALS: BP 139/84; PULSE 63; RESP 17; TEMP 36.3; O2SAT 96
[2025-04-05 20:00] VITALS: BP 100/45; PULSE 68; RESP 15; TEMP 36.8; O2SAT 98
[2025-04-05] MEDS: DIVALPROEX SODIUM 250MG DR TABLET PO SCH (21:00)
[2025-04-06] VITALS: BP 101/58; PULSE 54; RESP 17; TEMP 36.4; O2SAT 96
[2025-04-06 04:00] VITALS: BP 117/74; PULSE 68; RESP 18; TEMP 35.9; O2SAT 94
[2025-04-06 12:00] VITALS: BP 105/62; PULSE 79; RESP 18; TEMP 36.4; O2SAT 98
[2025-04-06 16:00] VITALS: BP 109/57; PULSE 82; RESP 17; TEMP 36.6; O2SAT 98
[2025-04-06 20:00] VITALS: BP 111/63; PULSE 69; RESP 16; TEMP 36.8; O2SAT 95
[2025-04-07] VITALS: BP 128/80; PULSE 90; RESP 16; TEMP 36.8; O2SAT 96
[2025-04-07 04:00] VITALS: BP 112/83; PULSE 59; RESP 16; TEMP 36.8; O2SAT 97
[2025-04-07 08:00] VITALS: BP 96/63; PULSE 62; RESP 19; TEMP 35.4; O2SAT 98
[2025-04-07 12:00] VITALS: PULSE 66; RESP 18; TEMP 35.7; O2SAT 98
[2025-04-07 16:00] VITALS: BP 124/79; PULSE 79; RESP 18; TEMP 36.7; O2SAT 95
[2025-04-08] VITALS: BP 114/71; PULSE 70; RESP 17; RESP 70; TEMP 35.9; O2SAT 98
[2025-04-08 04:00] VITALS: BP 96/67; PULSE 55; RESP 18; TEMP 35.6; O2SAT 98
[2025-04-08 12:00] VITALS: BP 130/69; PULSE 63; RESP 17; TEMP 36.1; O2SAT 96
[2025-04-08 16:00] VITALS: BP 132/73; PULSE 67; RESP 17; TEMP 36.1; O2SAT 97
[2025-04-08 20:00] VITALS: BP 106/76; PULSE 68; RESP 18; TEMP 36.6; O2SAT 97
[2025-04-09] VITALS: BP 105/64; PULSE 68; RESP 18; TEMP 36.7; O2SAT 96
[2025-04-09 04:00] VITALS: BP 117/67; PULSE 60; RESP 18; TEMP 36.6; O2SAT 97
[2025-04-09 08:00] VITALS: BP 111/77; PULSE 95; RESP 18; TEMP 36.4; O2SAT 95
[2025-04-09 12:00] VITALS: BP 113/70; PULSE 62; RESP 18; TEMP 35.8; O2SAT 98
[2025-04-09] MEDS: LORAZEPAM 1MG TABLET PO PRN (15:02)
[2025-04-09] MEDS: SERTRALINE HCL 50MG TABLET PO SCH (18:39)
[2025-04-09] MEDS: LORAZEPAM 2MG/ML UD SYRINGE IM NR (18:40)
[2025-04-09 20:00] VITALS: BP 115/69; PULSE 94; RESP 18; TEMP 36.4; O2SAT 97
[2025-04-10] VITALS: BP 124/90; PULSE 88; RESP 18; TEMP 37.1; O2SAT 96
[2025-04-10 04:00] VITALS: BP 134/79; PULSE 72; RESP 18; TEMP 36.5; O2SAT 97
[2025-04-10 08:00] VITALS: BP 135/93; PULSE 61; RESP 17; TEMP 36.5; O2SAT 96
[2025-04-10 12:00] VITALS: BP 125/76; PULSE 71; RESP 18; TEMP 36.6; O2SAT 98
[2025-04-10 16:00] VITALS: BP 128/82; PULSE 82; RESP 17; TEMP 36.6; O2SAT 96
[2025-04-10 20:00] VITALS: BP 148/92; PULSE 66; RESP 19; TEMP 36.6; O2SAT 98
[2025-04-11] VITALS: BP 181/87; PULSE 94; RESP 19; TEMP 36.4; O2SAT 97
[2025-04-11 04:00] VITALS: BP 127/88; PULSE 68; RESP 20; TEMP 36.6; O2SAT 97
[2025-04-11 08:00] VITALS: BP 134/72; PULSE 57; RESP 18; TEMP 36.3; O2SAT 98
[2025-04-11 12:00] VITALS: BP 148/93; PULSE 59; RESP 19; TEMP 36.1; O2SAT 98
[2025-04-11 16:00] VITALS: BP 136/97; PULSE 76; RESP 18; TEMP 36.8; O2SAT 98
[2025-04-11 20:00] VITALS: BP 150/94; PULSE 84; RESP 19; TEMP 36.7; O2SAT 97
[2025-04-12] VITALS: BP 159/92; PULSE 86; RESP 20; TEMP 36.1; O2SAT 96
[2025-04-12 04:00] VITALS: BP 140/68; PULSE 56; RESP 18; TEMP 36.1; O2SAT 98
[2025-04-12 08:00] VITALS: BP 136/74; PULSE 91; RESP 18; TEMP 36.3; O2SAT 96
[2025-04-12 12:00] VITALS: BP 105/70; PULSE 70; RESP 18; TEMP 36.2; O2SAT 97
[2025-04-12 16:00] VITALS: BP 131/84; PULSE 72; RESP 16; TEMP 36.4; O2SAT 95
[2025-04-12 20:00] VITALS: BP 121/89; PULSE 70; RESP 20; TEMP 36.6; O2SAT 95
[2025-04-13] VITALS: BP 132/75; PULSE 84; RESP 18; TEMP 36.2; O2SAT 96
[2025-04-13 04:00] VITALS: BP 113/74; PULSE 67; RESP 20; TEMP 36.1; O2SAT 98
[2025-04-13 08:00] VITALS: BP 137/101; PULSE 68; RESP 18; TEMP 36.2; O2SAT 95
[2025-04-13 12:00] VITALS: BP 110/71; PULSE 75; RESP 18; TEMP 36.2; O2SAT 95
[2025-04-13 20:00] VITALS: BP 117/70; PULSE 81; RESP 17; TEMP 36.4; O2SAT 95
[2025-04-14] VITALS: BP 127/67; PULSE 74; RESP 17; TEMP 36.4; O2SAT 92
[2025-04-14 04:00] VITALS: BP 120/74; PULSE 86; RESP 18; TEMP 36.4; O2SAT 95
[2025-04-14 08:00] VITALS: BP 138/79; PULSE 89; RESP 18; TEMP 37.1; O2SAT 100
[2025-04-14 12:00] VITALS: BP 108/61; PULSE 57; RESP 20; TEMP 36.6; O2SAT 97
[2025-04-14] MEDS: RISPERIDONE 1MG TABLET PO SCH (12:01)
[2025-04-14] MEDS: ENOXAPARIN 30MG/0.3ML SYR SUBCUT SCH (12:01)
[2025-04-14 16:00] VITALS: BP 114/68; PULSE 54; RESP 18; TEMP 36.3; O2SAT 97
[2025-04-14] MEDS: HALOPERIDOL LACTATE 5MG/ML VIAL IM PRN (18:32)
[2025-04-15] VITALS: BP 113/91; PULSE 76; RESP 18; TEMP 36; O2SAT 98
[2025-04-15 04:00] VITALS: BP 129/92; PULSE 67; RESP 18; TEMP 36; O2SAT 98
[2025-04-15 08:00] VITALS: BP 142/93; PULSE 67; RESP 17; TEMP 35.7; O2SAT 98
[2025-04-15 12:00] VITALS: BP 140/83; PULSE 67; RESP 16; TEMP 36; O2SAT 99
[2025-04-15] MEDS: LORAZEPAM 1MG TABLET PO PRN (13:40)
[2025-04-15] MEDS: HYDROCODONE/ACETAMINOPHEN 5/325MG TABLET PO PRN (16:37)
[2025-04-15 20:00] VITALS: BP 139/85; PULSE 76; RESP 18; TEMP 36.4; O2SAT 97
[2025-04-16 04:00] VITALS: BP 129/84; PULSE 71; RESP 18; TEMP 36.6; O2SAT 98
[2025-04-16 08:00] VITALS: BP 141/90; PULSE 66; RESP 17; TEMP 36.1; O2SAT 98
[2025-04-16 12:00] VITALS: BP 118/91; PULSE 67; RESP 17; TEMP 36.4; O2SAT 98
[2025-04-16 16:00] VITALS: BP 132/81; PULSE 78; RESP 18; TEMP 37; O2SAT 98
[2025-04-16 20:00] VITALS: BP 123/79; PULSE 80; RESP 18; TEMP 36.7; O2SAT 98
[2025-04-17] VITALS: BP 107/68; PULSE 92; RESP 18; TEMP 36.5; O2SAT 94
[2025-04-17 04:00] VITALS: BP 107/63; PULSE 68; RESP 18; TEMP 36.6; O2SAT 97
[2025-04-17 08:00] VITALS: BP 104/58; PULSE 63; RESP 18; TEMP 36.5; O2SAT 95
[2025-04-17 12:00] VITALS: BP 106/76; PULSE 63; RESP 18; TEMP 36.4; O2SAT 96
[2025-04-17 16:00] VITALS: BP 120/80; PULSE 79; RESP 19; TEMP 36.6; O2SAT 96
[2025-04-17 20:00] VITALS: BP 133/89; PULSE 77; RESP 17; RESP 18; TEMP 36.4; TEMP 37.5; O2SAT 97
[2025-04-18] VITALS: BP 117/73; PULSE 82; RESP 18; TEMP 35.8; O2SAT 96
[2025-04-18 04:00] VITALS: BP 146/68; PULSE 64; RESP 18; TEMP 36.6; O2SAT 95
[2025-04-18 08:00] VITALS: BP 124/67; PULSE 54; RESP 19; TEMP 36.4; O2SAT 97
[2025-04-18 12:00] VITALS: BP 137/80; PULSE 67; RESP 19; TEMP 35.4; O2SAT 96
[2025-04-18 16:00] VITALS: BP 133/77; PULSE 75; RESP 18; TEMP 36.6; O2SAT 96
[2025-04-19] VITALS: BP 124/78; PULSE 84; RESP 16; TEMP 36.4; O2SAT 98
[2025-04-19 04:00] VITALS: BP 103/73; PULSE 66; RESP 16; TEMP 36.6; O2SAT 99
[2025-04-19 08:00] VITALS: BP 111/81; PULSE 58; RESP 17; TEMP 36.3; O2SAT 97
[2025-04-19 12:00] VITALS: BP 138/86; PULSE 60; RESP 16; TEMP 36.3; O2SAT 96
[2025-04-19] MEDS ORDERED: NALOXONE HCL 0.4MG/ML VIAL IV PRN (15:15)
[2025-04-19 16:00] VITALS: BP 122/72; PULSE 69; RESP 16; TEMP 36.3; O2SAT 98
[2025-04-19 20:00] VITALS: BP 123/77; PULSE 76; RESP 19; TEMP 36.8; O2SAT 96
[2025-04-20] VITALS: BP 122/72; PULSE 78; RESP 19; TEMP 36.8; O2SAT 97
[2025-04-20 04:00] VITALS: BP 115/72; PULSE 79; RESP 19; TEMP 36.7; O2SAT 96
[2025-04-20 08:00] VITALS: BP 133/82; PULSE 73; RESP 17; TEMP 36.6; O2SAT 97
[2025-04-20 12:00] VITALS: BP 121/61; PULSE 62; RESP 17; TEMP 36.6; O2SAT 96
[2025-04-20 16:00] VITALS: BP 116/66; PULSE 71; RESP 18; TEMP 36.7; O2SAT 98
[2025-04-20 20:00] VITALS: BP 130/83; PULSE 57; RESP 17; TEMP 36.5; O2SAT 97
[2025-04-21] VITALS: BP 127/71; PULSE 76; RESP 17; TEMP 36.9; O2SAT 98
[2025-04-21 04:00] VITALS: BP 131/81; PULSE 56; RESP 18; TEMP 36.2; O2SAT 96
[2025-04-21 08:00] VITALS: BP 131/75; PULSE 62; RESP 16; TEMP 36.8; O2SAT 97
[2025-04-21 12:00] VITALS: BP 132/76; PULSE 65; RESP 17; TEMP 36.7; O2SAT 96
[2025-04-21 16:00] VITALS: BP 133/72; PULSE 72; RESP 16; TEMP 36.7; O2SAT 97
[2025-04-21 20:00] VITALS: BP 126/84; PULSE 74; RESP 22; TEMP 36.4; O2SAT 96
[2025-04-21] MEDS: RISPERIDONE 1MG TABLET PO SCH (20:49)
[2025-04-22] VITALS: BP 117/57; PULSE 61; RESP 19; TEMP 35.7; O2SAT 100
[2025-04-22 04:00] VITALS: BP 108/69; PULSE 58; RESP 18; TEMP 36.2; O2SAT 97
[2025-04-22 08:00] VITALS: BP 111/61; PULSE 57; RESP 19; TEMP 36.6; O2SAT 96
[2025-04-22 12:00] VITALS: BP 131/94; PULSE 63; RESP 18; TEMP 36.6; O2SAT 96
[2025-04-22 16:00] VITALS: BP 113/75; PULSE 77; RESP 18; TEMP 36.4; O2SAT 96
[2025-04-22 20:00] VITALS: BP 147/82; PULSE 83; RESP 20; TEMP 36.1; O2SAT 96
[2025-04-23] VITALS: BP 140/88; PULSE 95; RESP 18; TEMP 36.5; O2SAT 95
[2025-04-23 04:00] VITALS: BP 116/66; PULSE 62; RESP 18; TEMP 36.4; O2SAT 98
[2025-04-23 08:00] VITALS: BP 112/81; PULSE 89; RESP 18; TEMP 35.3; O2SAT 99
[2025-04-23 12:00] VITALS: BP 120/82; PULSE 71; RESP 18; TEMP 35.7; O2SAT 94
[2025-04-23 16:00] VITALS: BP 114/63; PULSE 92; RESP 17; TEMP 35.8; O2SAT 96
[2025-04-24 08:00] VITALS: BP 131/68; PULSE 78; RESP 18; TEMP 35.8; O2SAT 96
[2025-04-24 12:00] VITALS: BP 110/78; PULSE 74; RESP 18; TEMP 36.1; O2SAT 96
[2025-04-24 16:00] VITALS: BP 120/84; PULSE 90; RESP 18; TEMP 36.2; O2SAT 95
[2025-04-24] MEDS: LORAZEPAM 1MG TABLET PO PRN (23:11)
[2025-04-24] MEDS: HYDROCODONE/ACETAMINOPHEN 5/325MG TABLET PO PRN (23:12)
[2025-04-24] MEDS ORDERED: NALOXONE HCL 0.4MG/ML VIAL IV PRN (23:15)
[2025-04-25 08:00] VITALS: BP 154/85; PULSE 69; RESP 18; TEMP 36.4; O2SAT 95
[2025-04-25 12:00] VITALS: BP 136/90; PULSE 85; RESP 18; TEMP 37.3; O2SAT 95
[2025-04-25 16:00] VITALS: BP 125/83; PULSE 96; RESP 18; TEMP 36.6; O2SAT 95
[2025-04-25 20:00] VITALS: BP 136/94; PULSE 104; RESP 16; TEMP 36.6; O2SAT 100
[2025-04-26] VITALS: BP 149/99; PULSE 99; RESP 17; TEMP 36.8; O2SAT 99
[2025-04-26 04:00] VITALS: BP 140/91; PULSE 96; RESP 17; TEMP 36.8; O2SAT 96
[2025-04-26 08:00] VITALS: BP 150/89; PULSE 81; RESP 16; TEMP 36.7; O2SAT 97
[2025-04-26] MEDS: ENOXAPARIN 40MG/0.4ML SYR SUBCUT SCH (09:00)
[2025-04-26 20:00] VITALS: BP 160/87; PULSE 102; RESP 16; TEMP 36.8; O2SAT 96
[2025-04-27] VITALS: BP 158/92; PULSE 108; RESP 16; TEMP 36.7; O2SAT 95
[2025-04-27 04:00] VITALS: BP 138/82; PULSE 99; RESP 16; TEMP 36.7; O2SAT 97
[2025-04-27 08:00] VITALS: BP 144/82; PULSE 73; RESP 17; TEMP 36.5; O2SAT 96
[2025-04-27 12:00] VITALS: BP 126/75; PULSE 93; RESP 16; TEMP 36.4; O2SAT 97
[2025-04-27 20:00] VITALS: BP 155/96; PULSE 120; RESP 19; TEMP 36.7; O2SAT 97
[2025-04-28] VITALS: BP 174/108; PULSE 112; RESP 18; TEMP 36.7; O2SAT 97
[2025-04-28 00:30] VITALS: BP 148/102; PULSE 110; RESP 17; TEMP 36.8; O2SAT 100
[2025-04-28 04:00] VITALS: BP 131/86; PULSE 99; RESP 19; TEMP 34.7; O2SAT 96
[2025-04-28 08:00] VITALS: BP 148/99; PULSE 89; RESP 18; TEMP 36; O2SAT 98
[2025-04-28 20:00] VITALS: BP 133/87; PULSE 79; RESP 18; TEMP 36.6; O2SAT 95
[2025-04-29] VITALS: BP 128/88; PULSE 76; RESP 16; TEMP 36.6; O2SAT 97
[2025-04-29 04:00] VITALS: BP 105/73; PULSE 68; RESP 16; TEMP 36.3; O2SAT 96
[2025-04-29 08:00] VITALS: BP 115/73; PULSE 81; RESP 16; TEMP 36; O2SAT 97
[2025-04-29 12:00] VITALS: BP 144/94; PULSE 89; RESP 16; TEMP 35.7; O2SAT 96
[2025-04-29 16:00] VITALS: BP 140/76; PULSE 88; RESP 16; TEMP 35.6; O2SAT 96
[2025-04-29 20:00] VITALS: BP 123/81; PULSE 93; RESP 20; TEMP 36.6
[2025-04-30] VITALS: BP 120/79; PULSE 88; RESP 18; TEMP 36.1; O2SAT 95
[2025-04-30 08:00] VITALS: BP 132/72; PULSE 68; RESP 16; TEMP 36.6; O2SAT 98
[2025-04-30 12:00] VITALS: BP 118/56; PULSE 96; RESP 18; TEMP 36.3; O2SAT 100
[2025-04-30 16:00] VITALS: BP 145/91; PULSE 70; RESP 16; TEMP 36.3; O2SAT 95
[2025-04-30 20:00] VITALS: BP 114/74; PULSE 72; RESP 19; TEMP 36.6; O2SAT 100
[2025-04-30] MEDS ORDERED: NALOXONE HCL 0.4MG/ML 1ML VIAL IV PRN (22:00)
[2025-04-30] MEDS: HYDROCODONE/ACETAMINOPHEN 5/325MG TABLET PO PRN (22:24)
[2025-05-01] VITALS: BP 126/85; PULSE 83; RESP 19; TEMP 36.7; O2SAT 100
[2025-05-01 04:00] VITALS: BP 115/70; PULSE 65; RESP 19; TEMP 36.5; O2SAT 97
[2025-05-01 08:00] VITALS: BP 106/74; PULSE 72; RESP 18; TEMP 35.7; O2SAT 100
[2025-05-01 12:00] VITALS: BP 107/53; PULSE 65; RESP 18; TEMP 35.6; O2SAT 97
[2025-05-01 16:00] VITALS: BP 113/62; PULSE 76; RESP 18; TEMP 35.6; O2SAT 100
[2025-05-01 23:38] VITALS: BP 124/70; PULSE 68; RESP 19; TEMP 36.4; O2SAT 96
[2025-05-02 04:00] VITALS: BP 137/72; PULSE 68; RESP 18; TEMP 36.4; O2SAT 99
[2025-05-02 08:00] VITALS: BP 99/68; PULSE 67; RESP 19; TEMP 35.7; O2SAT 98
[2025-05-02 12:00] VITALS: BP 116/72; PULSE 71; RESP 18; TEMP 35.7; O2SAT 99
[2025-05-02 16:00] VITALS: BP 116/69; PULSE 86; RESP 18; TEMP 35.7; O2SAT 97
[2025-05-02 20:00] VITALS: BP 148/88; PULSE 107; RESP 18; TEMP 36.5; O2SAT 99
[2025-05-03] VITALS: BP 108/74; PULSE 79; RESP 17; TEMP 36.5; O2SAT 99
[2025-05-03 04:00] VITALS: BP 125/58; PULSE 80; RESP 18; TEMP 36.1; O2SAT 99
[2025-05-03 12:30] VITALS: BP 119/61; PULSE 74; RESP 17; TEMP 36.7; O2SAT 95
[2025-05-03 20:00] VITALS: BP 136/96; PULSE 87; RESP 18; TEMP 36.6; O2SAT 96
[2025-05-03 20:42] VITALS: BP 136/96; PULSE 87; TEMP 97.8
== END 2025-05-03 21:37 | DRG 190 ==
LOC: ER 14:35 → 5WST 23:07 → EDBEDREQ 23:21 → EDBEDREQTM 23:21 → ENRESERV 23:32 → 8EST 02-24 02:00 → 7EST 03-26 21:47
PROVIDERS: ADMIT Internal Medicine; ATTEND Internal Medicine
PROC: GZ56ZZZ Individual Psychotherapy, Supportive (ICD-10-PCS; principal; 2025-03-13)
DX: R07.89 Other chest pain (principal); I21.A1 Myocardial infarction type 2; F03.92 Unspecified dementia, unspecified severity, with psychotic disturbance; L89.896 Pressure-induced deep tissue damage of other site; F22 Delusional disorders; I10 Essential (primary) hypertension; T81.31XA Disruption of external operation (surgical) wound, not elsewhere classified, initial encounter; K21.9 Gastro-esophageal reflux disease without esophagitis; M48.56XA Collapsed vertebra, not elsewhere classified, lumbar region, initial encounter for fracture; I25.10 Atherosclerotic heart disease of native coronary artery without angina pectoris; M54.9 Dorsalgia, unspecified; Z88.0 Allergy status to penicillin; Y83.8 Other surgical procedures as the cause of abnormal reaction of the patient, or of later complication, without mention of misadventure at the time of the procedure; Y92.89 Other specified places as the place of occurrence of the external cause
CPT/HCPCS: 36415; 71045; 72110; 74018; 75571; 80048; 80053; 80076; 80165; 81003; 82962; 83880; 84484; 85025; 93005; 93306; 93971; 97110; 97112; 97162; 97166; 97168; 97530; 97535; 99291; A4606; A4615; A6261; J1630; J1650; J2060; J2270; Q0163; Q9967